=== PATIENT | female | born 1950 | race Caucasian/White ===

== ENCOUNTER → 2021-06-11 14:00 | Outpatient (BNVA) | payer BC, SELFPAY | PROVIDERS: PCP Family Medicine; Visit Provider Family Medicine | DX: I10 Essential (primary) hypertension (principal); E78.2 Mixed hyperlipidemia; E11.9 Type 2 diabetes mellitus without complications; R60.0 Localized edema; M54.2 Cervicalgia; G89.29 Other chronic pain | CPT/HCPCS: 80053; 80061; 82043; 83036; 85025 ==

== ENCOUNTER 2021-06-18 06:00 | Outpatient (RCR) | payer MEDICARE, BC, SELFPAY | END 2021-07-01 23:59 | disposition home or self-care (01) | LOC: SPT 06:00 | PROVIDERS: PCP Family Medicine; Visit Provider Family Medicine | DX: R26.81 Unsteadiness on feet (principal) | CPT/HCPCS: 97110; 97162 ==

== ENCOUNTER 2021-07-02 06:00 | Outpatient (RCR) | payer MEDICARE, BC, SELFPAY | END 2021-07-31 23:59 | disposition home or self-care (01) | LOC: SPT 06:00 | PROVIDERS: PCP Family Medicine; Visit Provider Family Medicine | DX: R26.81 Unsteadiness on feet (principal) | CPT/HCPCS: 97110 ==

== ENCOUNTER 2021-08-01 06:00 | Outpatient (RCR) | payer MEDICARE, BC, SELFPAY | END 2021-08-31 23:59 | disposition home or self-care (01) | LOC: SPT 06:00 | PROVIDERS: PCP Family Medicine; Visit Provider Family Medicine | DX: R26.81 Unsteadiness on feet (principal) | CPT/HCPCS: 97110 ==

== ENCOUNTER → 2021-08-13 15:23 | Outpatient (BNVA) | payer MEDICARE, BC, SELFPAY | PROVIDERS: PCP Family Medicine; Visit Provider Family Medicine | DX: I10 Essential (primary) hypertension (principal) | CPT/HCPCS: 80048 ==

== ENCOUNTER 2021-09-01 06:00 | Outpatient (RCR) | payer MEDICARE, BC, SELFPAY | END 2021-10-01 23:59 | disposition home or self-care (01) | LOC: SPT 06:00 | PROVIDERS: PCP Family Medicine; Visit Provider Family Medicine | DX: R26.81 Unsteadiness on feet (principal) | CPT/HCPCS: 97110 ==

== ENCOUNTER 2021-10-10 11:17 | Outpatient (CLI) | payer MEDICARE, BC, SELFPAY ==
--- NOTE | 2021-10-10 11:46 | MR_ITS ---
WS: [id number] MRI CERVICAL SPINE NONCONTRAST TECHNIQUE: Sagittal T1, T2 and STIR imaging. Axial T2, gradient, and fiesta imaging. CLINICAL INFORMATION: chronic neck pain COMPARISON: None. FINDINGS: Straightening of the normal cervical lordosis. Mild disc bulging with a small central protrusion C4-C 5. Slight retrolisthesis C4 on C5. Anterior hypertrophic changes C4-C6. Small vessel changes in the p ons. Chronic lacunar infarct in the liam. C2-C3: Normal. C3-C4: Tiny shallow central protrusion. Slight contact of the cervical cord. Mild facet arthropathy. Spinal canal and foramen are patent. C4-C5: Slight retrolisthesis. Disc osteophyte complex with endplate ridging. Mild to moderate central canal stenosis with contact of the cervical cord. Moderate bilateral bony foraminal narrowing. Mild facet arthropathy. C5-C6: Slight anterolisthesis C5 on C6. Disc osteophyte complex with endplate ridging. Mild RIGHT gre ater than LEFT foraminal narrowing. Mild facet arthropathy. Spinal canal is patent. C6-C7: Shallow central disc protrusion. Slight contact of the cervical cord. Spinal canal is patent. Mild LEFT and no significant RIGHT foraminal narrowing. C7-T1: No significant disc bulging. Spinal canal and foramen are patent. Tiny shallow central protrusions in the upper thoracic spine at T2-T3 and T3-T4. Visualized brain stem structures: Normal. Prevertebral soft tissues: Normal. MR/MR cervical spin wo con* [id number] IMPRESSION: 1. Straightening of the normal cervical lordosis. Cord signal is normal. 2. Mild to moderate central canal stenosis C4-C5 with shallow central disc ost eophyte complex with slight indentation on the cervical cord. 3. Tiny shallow central protrusion C3-C4 with slight contact of the cervical c ord. Spinal canal is patent. 4. Moderate bilateral foraminal narrowing C4-C5. 5. Mild RIGHT C5-C6 bony foraminal narrowing.
== END 2021-10-10 11:18 | disposition home or self-care (01) ==
LOC: RAD 11:39
PROVIDERS: PCP Family Medicine; Visit Provider Family Medicine
DX: M48.02 Spinal stenosis, cervical region (principal); G89.29 Other chronic pain; M50.21 Other cervical disc displacement, high cervical region
CPT/HCPCS: 72141

== ENCOUNTER → 2021-10-18 15:31 | Outpatient (BNVA) | payer MEDICARE, BC, SELFPAY | PROVIDERS: PCP Family Medicine; Visit Provider Orthopaedic Surgery | DX: M54.2 Cervicalgia (principal); G89.29 Other chronic pain | CPT/HCPCS: 72050 ==

== ENCOUNTER → 2021-11-08 13:42 | Outpatient (BNVA) | payer MEDICARE, BC, SELFPAY | PROVIDERS: PCP Family Medicine; Referring Provider Orthopaedic Surgery; Visit Provider Anesthesiology Pain Medicine | DX: G89.29 Other chronic pain (principal); M47.12 Other spondylosis with myelopathy, cervical region; M50.90 Cervical disc disorder, unspecified, unspecified cervical region; M54.12 Radiculopathy, cervical region; M79.601 Pain in right arm; M79.602 Pain in left arm | CPT/HCPCS: 99205 ==

== ENCOUNTER → 2021-11-12 14:54 | Outpatient (BNVA) | payer MEDICARE, BC, SELFPAY | PROVIDERS: PCP Family Medicine; Visit Provider Family Medicine | DX: I10 Essential (primary) hypertension (principal) | CPT/HCPCS: 80048 ==

== ENCOUNTER 2022-01-24 03:26 | Emergency (ER) | payer MEDICARE, BC, SELFPAY ==
[2022-01-24] VITALS (9 sets, daily range): BP systolic 158–188; BP diastolic 71–96; PULSE 68–87; RESP 18; TEMP 36.8; O2SAT 94–97; BMI 31.1
--- NOTE | 2022-01-24 03:35 | XRR_ITS ---
PROCEDURE INFORMATION: Exam: XR Chest Exam date and time: 01/24/2022 3:45 AM Age: 71 years old Clinical indication: Other: Syncope; Patient HX: Syncopal episode at home this a. M. Per EMS, patient unresponsive for approximately ten minutes. TECHNIQUE: Imaging protocol: XR of the chest. Views: 1 view. COMPARISON: CR XR cervical spine 4-5V [id number] 10/18/2021 3:38 PM FINDINGS: Lungs: The lung parenchyma is clear. Pleural spaces: No pneumothorax. No pleural effusion. Heart/Mediastinum: The heart is enlarged for size. Bones/joints: Unremarkable. XR/XR chest 1V portable [id number] IMPRESSION: 1. Cardiomegaly. 2. No significant airspace consolidation concerning for pneumonia.
--- NOTE | 2022-01-24 03:35 | CTR_ITS ---
PROCEDURE INFORMATION: Exam: CT Abdomen And Pelvis With Contrast Exam date and time: 01/24/2022 4:23 AM Age: 71 years old Clinical indication: Abdominal pain; Generalized; Prior surgery; Surgery type: Csection. Hemorrhoidectomy. Patient HX: C/O genral abd pain and weakness with nausea after having syncopal episode. History of stage iii kidney disease. TECHNIQUE: Imaging protocol: Computed tomography of the abdomen and pelvis with contrast. Radiation optimization: All CT scans at this facility use at least one of these dose optimization techniques: automated exposure control; mA and/or kV adjustment per patient size (includes targeted exams where dose is matched to clinical indication); or iterative reconstruction. Contrast material: VISI 320; Contrast volume: 50 ml; Contrast route: INTRAVENOUS (IV); COMPARISON: CR (CHEST, ) 01/24/2022 3:45 AM RADIATION DOSE METRICS: Total DLP (mGy-cm): 5.81 FINDINGS: Liver: There is a subcentimeter focus of decreased attenuation in the left hepatic lobe, which is too small to characterize. The liver is otherwise unremarkable. Gallbladder and bile ducts: Normal. No calcified stones. No ductal dilation. Pancreas: Normal. No ductal dilation. Spleen: Normal. No splenomegaly. Adrenal glands: Normal. No mass. Kidneys and ureters: Symmetric enhancement of the kidneys. There is incompletely characterized hypodense lesions in both kidneys, the largest measuring 3.8 cm in the right lower kidney. No hydronephrosis or nephrolithiasis. There is a 0.7 cm partially calcified aneurysm in the right renal hilum. Stomach and bowel: Unremarkable. No obstruction. No mucosal thickening. Appendix: No evidence of appendicitis. Intraperitoneal space: Unremarkable. No free air. No significant fluid collection. Vasculature: Mild diffuse atherosclerotic disease is present. Lymph nodes: Unremarkable. No enlarged lymph nodes. Urinary bladder: Unremarkable as visualized. Reproductive: Partially calcified uterine fibroid noted. Bones/joints: Degenerative changes of the spine seen. Soft tissues: Unremarkable. CT/CT abdomen pelvis w con* [id number] IMPRESSION: 1. No acute intra-abdominal or intrapelvic pathology. 2. Incompletely characterized bilateral kidney lesions. Further evaluation with contrast enhanced abdomen MRI in a non-emergent basis is recommended.
--- NOTE | 2022-01-24 03:35 | CTR_ITS ---
PROCEDURE INFORMATION: Exam: CT Head Without Contrast Exam date and time: 01/24/2022 4:18 AM Age: 71 years old Clinical indication: Syncope and collapse; Patient HX: Patient had syncopal episode while sitting on toilet at home this a. M. C/O general weakness. TECHNIQUE: Imaging protocol: Computed tomography of the head without contrast. Radiation optimization: All CT scans at this facility use at least one of these dose optimization techniques: automated exposure control; mA and/or kV adjustment per patient size (includes targeted exams where dose is matched to clinical indication); or iterative reconstruction. COMPARISON: MR cervical spin wo con* [id number] 10/10/2021 12:17 PM RADIATION DOSE METRICS: Total DLP (mGy-cm): 829.86 FINDINGS: Brain: No acute hemorrhage identified. No large territorial areas of hypoattenuation concerning for ischemic infarct identified. No intracranial mass effect. Subcortical and periventricular and subinsular white matter hypoattenuation likely consistent with moderate chronic microvascular ischemic disease. Small right subinsular infarct. Cerebral ventricles: The ventricles are mildly enlarged. Paranasal sinuses: The visualized sinuses are unremarkable. Mastoid air cells: The visualized mastoid air cells are well aerated. Bones/joints: The osseous structures are intact. Soft tissues: Unremarkable. CT/CT head wo con* [id number] IMPRESSION: 1. No acute intracranial abnormality. 2. Moderate chronic microvascular ischemic disease. 3. Small right subinsular infarct. 4. Mild ventriculomegaly.
--- NOTE | 2022-01-24 03:40 | ECG_ITS ---
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 Measurements Intervals [place] Rate: 68 P: 51 MT: 171 QRS: 59 QRSD: 82 T: 16 QT: 382 QTc: 407 Interpretive Statements SINUS RHYTHM NONSPECIFIC ST & T-WAVE ABNORMALITY Compared to ECG 01/24/2022 03:33:22 No significant changes Electronically Signed On 01-24-2022 22:25:24 CDT by Mendoza Ortiz M.D. [email or web address] [place].[email or web address]/store/[id number]
--- NOTE | 2022-01-24 03:43 | ED_ITS ---
HPI - Syncope General: Chief Complaint: Syncope Stated Complaint: syncope Time Seen by Provider: 01/24/22 03:32 Source: EMS Mode of arrival: EMS Limitations: no limitations History of Present Illness: 71-year-old female states that she went to the bathroom and had a syncopal event just prior to arrival. Her states that he had one in there with her she sat down and immediately became pale diap horetic and passed out for roughly a minute. He states that she had vomited and he was able to get her to wake up. She states that since she had woken up she just does not feel very well she is having some abdominal pain and feels weak. She denies any chest pain or headache. Denies any chest pain or headache before the event. Associated symptoms: Reports abdominal pain; Deny fever(s) or headache(s) Review of Systems Const: Denies: fever(s), chills, body aches or change in appetite Eyes: Denies: blurry vision or eye discomfort ENMT: Denies: throat pain or dental pain Card: Reports: syncope Resp: Denies: dyspnea GI: Reports: abdominal pain and vomiting : Denies: dysuria Musc: Denies: neck pain or back pain Skin/Breast: Denies: rash Neuro: Denies: headache(s) Psych: Denies: depression Julien/Lymph: Denies: easy bruising All/Imm: Denies: urticaria PFSH ED PFSH: Medical History Diabetes mellitus without complication, without long-term current use of insulin Essential hypertension Hyperlipemia [place] (obstructive sleep apnea) Stage 3a chronic kidney disease (CKD) Surgical History H/O section x 2 H/O hemorrhoidectomy H/O total knee replacement left Hx of LASIK Family History Father Cancer Grandmother Stroke Social History Smoking and tobacco status: never smoked Second hand smoke exposure: No Alcohol intake: never Desire information about alcohol rehabilitation?: No Desire information about substance/drug rehabilitation?: No Physical Exam Const: COMMON NORMALS: no acute distress, patient oriented x3 and healthy appearing HENMT: COMMON NORMALS: normocephalic and atraumatic HEAD & SCALP: normocephalic and atraumatic Eye: COMMON NORMALS: Equal, round and reactive pupils present and EOMs intact bilaterally PUPIL: Yes Equal, round and reactive pupils present Neck/C-Spine: COMMON NORMALS: full ROM and supple Chest: COMMONS NORMALS: normal inspection of the chest and normal palpation of entire chest wall Resp: COMMON NORMALS: normal respiratory effort, No retractions, No use of accessory muscles and clear to auscultation bilaterally AUSCULTATION: clear to auscultation bilaterally Cardio: COMMON NORMALS: regular rate, regular rhythm and No murmurs present (Cardio) RATE: regular rate RHYTHM: regular rhythm GI: COMMON NORMALS: Normal to inspection, nondistended, normoactive bowel sounds present, Soft to palpation and no masses PALPATION: Yes Soft to palpation OTHER: diffuse tenderness Extremity: COMMON NORMALS: normal to inspection and full ROM Neuro: COMMON NORMALS: patient oriented x3, moves all extremities and no focal motor deficits Psych: COMMON NORMALS: mental status grossly normal, Normal thought process present and cooperative THOUGHT PROCESS: Normal thought process present Skin: COMMON NORMALS: no rashes or lesions noted and no wounds GENERAL SKIN EXAM: no rashes or lesions noted Course Vital Signs: Vital signs: Vital Signs Temperature 98.2 F 01/24/22 03:27 Pulse Rate 81 01/24/22 06:03 Respiratory Rate 18 01/24/22 06:03 Blood Pressure 160/73 01/24/22 06:03 Pulse Oximetry 97 01/24/22 06:03 MDM - Syncope Medical Decision Making Patient presents here with a syncopal event. I strongly recommended admission due to the syncopal event she states she feels much improved and is not going to stay in the hospital her CT had CT of abdomen and blood work are all normal. She was able to ambulate the halls here with her walker and her orthostatics were normal informed her if she feels worse she needs to return she is to follow-up with PCP in 2 to 3 days. Lab Data : 01/24/22 03:10 01/24/22 03:10 Radiology Impressions Abdomen/Pelvis CT 01/24/22 03:35 IMPRESSION: 1. No acute intra-abdominal or intrapelvic pathology. 2. Incompletely characterized bilateral kidney lesions. Further evaluation with contrast enhanced abdomen MRI in a non-emergent basis is recommended. Chest X-Ray 01/24/22 03:35 IMPRESSION: 1. Cardiomegaly. 2. No significant airspace consolidation concerning for pneumonia. Head CT 01/24/22 03:35 IMPRESSION: 1. No acute intracranial abnormality. 2. Moderate chronic microvascular ischemic disease. 3. Small right subinsular infarct. 4. Mild ventriculomegaly. Laboratory Results WBC 8.9 10^3/uL (4.0-10.0) 01/24/22 03:10 RBC 3.25 10^6/uL (4.1-5.3) L 01/24/22 03:10 Hgb 9.7 g/dL (11.5-15.3) L 01/24/22 03:10 Hct 29.3 % (37.0-47.0) L 01/24/22 03:10 MCV 90.2 fl (81-99) 01/24/22 03:10 MCH 29.8 pg (28.0-34.0) 01/24/22 03:10 MCHC 33.1 g/dL (30.0-36.0) 01/24/22 03:10 RDW 13.3 % (12.1-15.1) 01/24/22 03:10 Plt Count 288 10^3/cmm (130-400) 01/24/22 03:10 MPV 9.4 fL (7.4-10.4) 01/24/22 03:10 Neut % (Auto) 66.5 % 01/24/22 03:10 Lymph % (Auto) 24.1 % 01/24/22 03:10 [place] % (Auto) 6.4 % 01/24/22 03:10 Eos % (Auto) 2.0 % 01/24/22 03:10 Baso % (Auto) 0.5 % 01/24/22 03:10 Neut # (Auto) 5.91 10^3/uL (1.8-7.7) 01/24/22 03:10 Lymph # (Auto) 2.1 10^3/uL (0.8-4.8) 01/24/22 03:10 [place] # (Auto) 0.6 10^3/uL (0.2-0.9) 01/24/22 03:10 Eos # (Auto) 0.2 10^3/uL (0.0-0.8) 01/24/22 03:10 Baso # (Auto) 0.0 10^3/uL (0.0-0.1) 01/24/22 03:10 Nucleated RBC % (auto) 0 % 01/24/22 03:10 Nucleated RBCs # 0.0 /100WBC 01/24/22 03:10 Sodium 140 mmol/L (136-145) 01/24/22 03:10 Potassium 4.3 mmol/L (3.5-5.1) 01/24/22 03:10 Chloride 101 mmol/L (98-107) 01/24/22 03:10 Carbon Dioxide 27 mmol/L (22-29) 01/24/22 03:10 Anion Gap 16.3 (5-19) 01/24/22 03:10 BUN 42 mg/dL (8-23) H 01/24/22 03:10 Creatinine 1.6 mg/dL (0.5-0.9) H 01/24/22 03:10 GFR Calculation Not Reportable 01/24/22 03:10 Glucose 191 mg/dL (65-115) H 01/24/22 03:10 Calculated Osmolality 306 mOsm/kg (285-295) H 01/24/22 03:10 Calcium 9.8 mg/dL (8.5-10.5) 01/24/22 03:10 Total Bilirubin 0.3 mg/dL (0.15-1.2) 01/24/22 03:10 AST 16 U/L (0-32) 01/24/22 03:10 ALT 19 U/L (0-33) 01/24/22 03:10 Alkaline Phosphatase 76 IU/L (35-105) 01/24/22 03:10 Troponin T Baseline 14 ng/L (0-10) H 01/24/22 03:10 Troponin T 120 Minute 14.31 ng/L (0-10) H 01/24/22 05:20 Delta Troponin T 0.31 ABS# (0-10) 01/24/22 05:20 Total Protein 7.1 g/dL (6.6-8.7) 01/24/22 03:10 Albumin 4.3 g/dL (3.5-5.2) 01/24/22 03:10 Globulin 2.8 g/dL (1.3-4.6) 01/24/22 03:10 Lipase 87 U/L (13-60) H 01/24/22 03:10 EKG Data EKG 1: I personally reviewed and interpreted this EKG as follows: EKG interpretation date: 01/24/22 EKG interpretation time: 03:33 Interpretation: nsr hr [address] or t wave abnormalities qrs 79 qtc 405 EKG 2: I personally reviewed and interpreted this EKG as follows: EKG interpretation date: 01/24/22 EKG interpretation time: 04:04 Interpretation: nsr hr [address] or t wave abnormalitie qrs 82 qtc 399 Discharge Plan Discharge Patient Disposition: Home Clinical Impression: Syncope Qualifiers: Syncope type: unspecified Qualified Code(s): R55 - Syncope and collapse Condition: Stable Prescriptions: No Action albuterol sulfate 90 mcg/actuation HFA aerosol inhaler 1 inh inhalation QID 0RF acetaminophen [Tylenol Extra Strength] 500 mg tablet 500 mg PO ONCE PRN0RF atorvastatin 80 mg tablet 80 mg PO DAILY 90 Days Qty: 90 0RF chlorthalidone 25 mg tablet 25 mg PO DAILY Qty: 90 0RF losartan 100 mg tablet 100 mg PO DAILY Qty: 90 0RF metformin 500 mg tablet extended release 24 hr 500 mg PO DAILY 90 Days Qty: 90 0RF metoprolol succinate 100 mg tablet extended release 24 hr 100 mg PO DAILY Qty: 90 0RF amlodipine 5 mg tablet 5 mg PO DAILY Qty: 90 0RF Discharge Orders: Discharge ED (Routine); Ordered 01/24/22 Ordered By: Alva Manriquez Referrals: Chrissy Zuniga DO [Primary Care Provider] - 1-3 days Discharge Diet: Advance as tolerated Discharge Activity: Resume usual activity Patient Instructions: Syncope (ED) Coding Level of Care Code ED Specialized Language Instructor for Chg Fwd Exam Comprehensive
[2022-01-24 03:50] LABS: Basophils % 0.5 %; Eosinophils # 0.2 10^3/uL (0.0-0.8); Hematocrit 29.3 % (37.0-47.0); Hemoglobin 9.7 g/dL (11.5-15.3); Lymphocytes # 2.1 10^3/uL (0.8-4.8); Lymphocytes % 24.1 %; Mean Corpuscular HGB Conc 33.1 g/dL (30.0-36.0); Mean Corpuscular Hemoglobin 29.8 pg (28.0-34.0); Mean Corpuscular Volume 90.2 fl (81-99); Mean Platelet Volume 9.4 fL (7.4-10.4); Monocytes # 0.6 10^3/uL (0.2-0.9); Monocytes % 6.4 %; Neutrophils # 5.91 10^3/uL (1.8-7.7); Neutrophils % 66.5 %; Nucleated Red Blood Cells % 0 %; Platelet Count 288 10^3/cmm (130-400); Red Blood Count 3.25 10^6/uL (4.1-5.3); Red Cell Distribution Width 13.3 % (12.1-15.1); White Blood Count 8.9 10^3/uL (4.0-10.0)
[2022-01-24 04:02] LABS: Alanine Aminotransferase 19 U/L (0-33); Albumin Level 4.3 g/dL (3.5-5.2); Alkaline Phosphatase 76 IU/L (35-105); Anion Gap 16.3 (5-19); Aspartate Amino Transferase 16 U/L (0-32); Blood Urea Nitrogen 42 mg/dL (8-23); Calcium 9.8 mg/dL (8.5-10.5); Carbon Dioxide 27 mmol/L (22-29); Chloride 101 mmol/L (98-107); Globulin 2.8 g/dL (1.3-4.6); Glucose 191 mg/dL (65-115); Lipase 87 U/L (13-60); Osmolality Calculated 306 mOsm/kg (285-295); Potassium 4.3 mmol/L (3.5-5.1); Sodium 140 mmol/L (136-145); Total Bilirubin 0.3 mg/dL (0.15-1.2); Total Protein 7.1 g/dL (6.6-8.7)
[2022-01-24 04:07] LABS: Troponin(5th) Baseline 14 ng/L (0-10)
[2022-01-24] MEDS: iodixanol 320 mg/mL 100mL Btl IV (04:23)
[2022-01-24] MEDS: sodium chloride 0.9% 1,000 ML 999 ML IV (04:40)
[2022-01-24 05:51] LABS: Troponin 5 2HR 14.31 ng/L (0-10)
[2022-01-24 05:53] LABS: Troponin 5 2HR Delta 0.31 ABS# (0-10)
--- NOTE | 2022-01-24 09:40 | ECG_ITS ---
[facility] Test Date: 2022-01-24 Pat Name: Katharine Pelletier Department: Room: Gender: Female Qa Tester: : 1950 Requested By: Alva Manriquez Order Number: [id number] Lucien MD: Mendoza Ortiz M.D. Measurements Intervals [place] Rate: 69 P: 52 MS: 170 QRS: 61 QRSD: 79 T: 30 QT: 387 QTc: 415 Interpretive Statements SINUS RHYTHM NONSPECIFIC ST & T-WAVE ABNORMALITY No previous ECG available for comparison Electronically Signed On 01-24-2022 22:28:04 CDT by Mendoza Ortiz M.D. [email or web address] [id number]
== END 2022-01-24 06:00 | disposition home or self-care (01) ==
PROVIDERS: Emergency Provider Emergency Medicine; PCP Family Medicine
DX: R55 Syncope and collapse (principal); I12.9 Hypertensive chronic kidney disease with stage 1 through stage 4 chronic kidney disease, or unspecified chronic kidney disease; E11.22 Type 2 diabetes mellitus with diabetic chronic kidney disease; N18.31 Chronic kidney disease, stage 3a
CPT/HCPCS: 70450; 71045; 74177; 80053; 83690; 84484; 85025; 93005; 96360; 99285; J7030; Q9967

== ENCOUNTER → 2022-02-11 15:22 | Outpatient (BNVA) | payer MEDICARE, BC, SELFPAY | PROVIDERS: PCP Family Medicine; Visit Provider Family Medicine | DX: N18.31 Chronic kidney disease, stage 3a (principal); R30.0 Dysuria | CPT/HCPCS: 80048; 87077; 87086; 87184 ==

== ENCOUNTER → 2022-02-28 13:01 | Outpatient (BNVA) | payer MEDICARE, BC, SELFPAY | PROVIDERS: PCP Family Medicine; Visit Provider Surgery | DX: D50.9 Iron deficiency anemia, unspecified (principal) | CPT/HCPCS: 99203 ==

== ENCOUNTER → 2022-05-09 18:04 | Outpatient (BNVA) | payer MEDICARE, BC, SELFPAY | PROVIDERS: PCP Family Medicine; Visit Provider Emergency Medicine | DX: N30.01 Acute cystitis with hematuria (principal); R82.90 Unspecified abnormal findings in urine | CPT/HCPCS: 81000 ==

== ENCOUNTER → 2022-08-19 13:26 | Outpatient (BNVA) | payer MEDICARE, BC, SELFPAY | PROVIDERS: PCP Family Medicine; Visit Provider Family Medicine | DX: D50.8 Other iron deficiency anemias (principal); D50.9 Iron deficiency anemia, unspecified; I10 Essential (primary) hypertension; R60.0 Localized edema; R53.83 Other fatigue; E11.9 Type 2 diabetes mellitus without complications; E78.2 Mixed hyperlipidemia | CPT/HCPCS: 80053; 80061; 82728; 83036; 83550; 84443; 85025 ==

== ENCOUNTER → 2022-09-05 10:20 | Outpatient (BNVA) | payer MEDICARE, BC, SELFPAY | PROVIDERS: PCP Family Medicine; Visit Provider Obstetrics & Gynecology | DX: N95.0 Postmenopausal bleeding (principal) | CPT/HCPCS: 88305; 88342 ==

== ENCOUNTER 2022-09-18 15:54 | Outpatient (CLI) | payer MEDICARE, BC, SELFPAY ==
[2022-09-18 16:43] LABS: Basophils % 0.4 %; Eosinophils # 0.2 10^3/uL (0.0-0.8); Eosinophils % 2.8 %; Hematocrit 29.3 % (37.0-47.0); Hemoglobin 9.4 g/dL (11.5-15.3); Lymphocytes # 1.7 10^3/uL (0.8-4.8); Lymphocytes % 21.4 %; Mean Corpuscular HGB Conc 32.1 g/dL (30.0-36.0); Mean Corpuscular Hemoglobin 29.1 pg (28.0-34.0); Mean Corpuscular Volume 90.7 fl (81-99); Mean Platelet Volume 9.4 fL (7.4-10.4); Monocytes # 0.4 10^3/uL (0.2-0.9); Monocytes % 5.1 %; Neutrophils # 5.46 10^3/uL (1.8-7.7); Nucleated Red Blood Cells % 0 %; Platelet Count 239 10^3/cmm (130-400); Red Blood Count 3.23 10^6/uL (4.1-5.3); Red Cell Distribution Width 13.3 % (12.1-15.1); White Blood Count 7.8 10^3/uL (4.0-10.0)
== END 2022-09-18 15:55 | disposition home or self-care (01) ==
LOC: LAB 15:58
PROVIDERS: PCP Family Medicine; Visit Provider Obstetrics & Gynecology
DX: R58 Hemorrhage, not elsewhere classified (principal)
CPT/HCPCS: 36415; 85025

== ENCOUNTER → 2022-10-04 09:02 | Outpatient (BNVA) | payer MEDICARE, BC, SELFPAY | PROVIDERS: PCP Family Medicine; Visit Provider Obstetrics & Gynecology | DX: N95.0 Postmenopausal bleeding (principal); R19.09 Other intra-abdominal and pelvic swelling, mass and lump | CPT/HCPCS: 76830 ==

== ENCOUNTER 2022-10-10 07:35 | Day surgery (SDC) | payer MEDICARE, BC, SELFPAY ==
[2022-10-10] VITALS (11 sets, daily range): BP systolic 149–165; BP diastolic 62–82; PULSE 63–70; RESP 11–20; TEMP 36.1–36.6; O2SAT 94–100
--- NOTE | 2022-10-10 08:14 | ANES.PREANE2 ---
Pre-Anesthetic Assessment Height/Weight: Height 1.57 m Weight 81.647 kg Temp Pulse Resp BP Pulse Ox O2 Del Method 97.9 F 68 18 165/74 99 10/10/22 07:58 10/10/22 07:58 10/10/22 07:58 10/10/22 07:58 10/10/22 07:58 10/10/22 07:58 Preop Diagnosis: PMB Operation Date: 10/10/22 09:00 Proposed Procedures p Hysteroscopy, dilation and curettage with Myosure 57239, 22020,58714,N95.0(Not Applicable) - Leslie Duncan MD s Dilation And Curettage (D&C)(Not Applicable) - Leslie Duncan MD Familial anesthetic complications: None Was Beta [place] taken within 24 hours: N/A Was Clonidine taken within 24 hours: N/A Last intake: Intake Last Liquid Date 10/09/22 Last Liquid Time 23:00 Last Solid Date 10/09/22 Last Solid Time 21:00 Social No alcohol and No tobacco Exam alert, oriented x 3, clear to auscultation bilaterally and regular rate & rhythm Airway Mallampati: Class III Dentition: other (implant) Pulmonary Sleep Apnea CV/HEM Hypertension Chronic Renal Insufficiency Metabolic Diabetes Mellitus, Hyperlipidemia and Morbid Obesity Neuropsych Cerebrovascular Accident (balance deficit plus ? additiona deficits (patient apppears to be demonstrating slow perplexed thinking)) Anesthetic Plan ASA status: 3 Risk of > 500 ml blood loss (7ml/kg in children): No Medications/Allergies Home Medications Medication Instructions Recorded Confirmed Last Taken Type acetaminophen 500 mg tablet 500 mg PO PRN PRN Pain 11/08/21 10/10/22 10/09/22 History (Tylenol Extra Strength) metoprolol succinate 100 mg 100 mg PO DAILY #90 tabs 07/29/22 10/10/22 10/09/22 Rx tablet,extended release 24 hr atorvastatin 80 mg tablet 80 mg PO DAILY 90 days #90 tabs 08/02/22 10/10/22 10/09/22 Rx amlodipine 5 mg tablet 5 mg PO DAILY #90 tabs 08/19/22 10/10/22 10/09/22 Rx chlorthalidone 25 mg tablet 25 mg PO DAILY #90 tabs 08/19/22 10/10/22 10/09/22 Rx losartan 100 mg tablet 100 mg PO DAILY #90 tabs 08/19/22 10/10/22 10/09/22 Rx sitagliptin phosphate 25 mg tablet 25 mg PO DAILY #90 tabs 08/21/22 10/10/22 10/09/22 Rx (Januvia) Allergies Allergy/AdvReac Type Severity Reaction Status Date / Time latex Allergy ALGY-Hives Verified 10/10/22 07:53 meperidine [From Demerol] Allergy ADR-Halluci Verified 10/10/22 07:53 cody [facility] Anesthesia Medical History Diabetes mellitus without complication, without long-term current use of insulin Essential hypertension Hyperlipemia [place] (obstructive sleep apnea) Stage 3a chronic kidney disease (CKD) Surgical History H/O section x 2 H/O hemorrhoidectomy H/O total knee replacement left Hx of LASIK Family History Grandmother Stroke Denies family history of Colon cancer Ovarian cancer Diabetes Heart disease Hypercholesteremia Breast cancer Hypertension Uterine cancer Thyroid disease Data Anesthesia Cardiac Studies: No Data to Display
[2022-10-10] MEDS: sodium chloride 0.9% 1,000 ML 30 ML IV (08:19)
[2022-10-10 08:23] LABS: Glucose Point of Care 127 mg/dL (70-110)
--- NOTE | 2022-10-10 08:23 | W.PM.OPSUD ---
Surgery/Procedure H&P Update DATE OF PROCEDURE: October 10, 2022 DATE H&P PERFORMED: 10/09/22 H&P UPDATE INFORMATION: I have reviewed H&P completed within last 30 days, I have examined patient prior to procedure and No changes to prior documentation PREOP DIAGNOSIS: PMB PLANNED PROCEDURE: Operation Date: 10/10/22 09:00 Proposed Procedures p Hysteroscopy, dilation and curettage with Myosure 78315, 11076,10065,N95.0(Not Applicable) - Leslie Duncan MD s Dilation And Curettage (D&C)(Not Applicable) - Leslie Duncan MD Related Problem List Diagnoses (1) Post-menopausal bleeding:
--- NOTE | 2022-10-10 08:35 | ECG_ITS ---
[facility] Test Date: 2022-10-10 Pat Name: Katharine Pelletier Department: Room: Gender: Female Supervisor Winter: : 1950 Requested By: Jackelyn North Order Number: [id number] Lucien MD: Eileen Castanon M.D. Measurements Intervals [place] Rate: 65 P: 84 NC: 184 QRS: 65 QRSD: 83 T: 30 QT: 395 QTc: 413 Interpretive Statements SINUS RHYTHM NONSPECIFIC T-WAVE ABNORMALITY Compared to ECG 01/24/2022 04:04:42 No significant changes Electronically Signed On 10-11-2022 8:15:45 WORKDAY CONSULTANT by Eileen Castanon M.D. [email or web address] [facility] regional medical centerDealsAndYouavita health system galion hospitalGreenwood Hall/store/OM/[id number]
[2022-10-10 08:41] LABS: Basophils # 0.1 10^3/uL (0.0-0.1); Basophils % 0.7 %; Eosinophils # 0.2 10^3/uL (0.0-0.8); Eosinophils % 3.1 %; Hematocrit 25.2 % (37.0-47.0); Hemoglobin 8.2 g/dL (11.5-15.3); Lymphocytes % 29.3 %; Mean Corpuscular HGB Conc 32.5 g/dL (30.0-36.0); Mean Corpuscular Hemoglobin 29.5 pg (28.0-34.0); Mean Corpuscular Volume 90.6 fl (81-99); Mean Platelet Volume 9.4 fL (7.4-10.4); Monocytes # 0.5 10^3/uL (0.2-0.9); Monocytes % 7.5 %; Neutrophils % 59.3 %; Nucleated Red Blood Cells % 0 %; Platelet Count 230 10^3/cmm (130-400); Red Blood Count 2.78 10^6/uL (4.1-5.3); Red Cell Distribution Width 13.5 % (12.1-15.1); White Blood Count 6.8 10^3/uL (4.0-10.0)
[2022-10-10] MEDS: ceFAZolin 2,000 MG in sodium chloride 0.9% (plus) 50 ML 100 MG IV (08:47)
[2022-10-10 08:58] LABS: Anion Gap 17.5 (5-19); Blood Urea Nitrogen 37 mg/dL (8-23); Calcium 9.3 mg/dL (8.5-10.5); Carbon Dioxide 23 mmol/L (22-29); Chloride 103 mmol/L (98-107); Glucose 121 mg/dL (65-115); Osmolality Calculated 298 mOsm/kg (285-295); Potassium 4.5 mmol/L (3.5-5.1); Sodium 139 mmol/L (136-145)
--- NOTE | 2022-10-10 09:33 | P.OP_ITS ---
Operative Report Date of procedure: October 10, 2022 Pre-op diagnosis: Preop Diagnosis PMB Post-op diagnosis: same Post-op diagnosis: uterine mass Post-op findings: 9 week sized uterus with a right uterine mass Procedure done: hysteroscopy, D&C, myosure Specimens removed/disposition: endometrial curettings to pathology Surgeon: Leslie Duncan Anesthesia: General Estimated blood loss (mL): 10 IV fluids (mL): 500 Complications: none Findings: hysteroscopy deficit 100 ml Procedure: The patient was taken to the operating room where monitored anesthesia was administered and to be adequate. She was prepped and draped in the normal sterile fashion in the dorsal lithotomy position in [facility]. A weighted speculum was placed into the vagina and the anterior lip of the cervix grasped with a single-tooth tenaculum. The uterus was sounded to 9 cm. The cervix was dilated to 16 [place]. The hysteroscope was advanced into the endometrial cavity. There was a right uterine mass visualized. The MyoSure device was activated and the tissue was removed. Pictures were taken pre and post procedure. All instruments were removed. The patient tolerated the procedure well. Sponge lap and needle counts were correct x3. She was taken to the recovery room in stable condition.
--- NOTE | 2022-10-10 09:38 | P.DS_ITS ---
Discharge Providers Date of Admission: 10/10/22 Date of Discharge: October 10, 2022 Attending Provider at Discharge: Leslie Duncan MD Primary Care Provider: Chrissy Zuniga DO Diagnoses at Discharge Discharge Diagnosis (1) Post-menopausal bleeding: Status: Acute Reason for Visit Reason for Visit: N95.0 Hospital Course Hospital Course The patient was admitted for surgery. She did well postoperatively and was ready for discharge. Discharge Data Studies Completed and Pending Pending at discharge Category Date Time Status Pathology: Surgical [PTH] Routine Pth 10/10/22 09:26 Ordered Laboratory Results WBC 6.8 10^3/uL (4.0-10.0) 10/10/22 08:18 RBC 2.78 10^6/uL (4.1-5.3) L 10/10/22 08:18 Hgb 8.2 g/dL (11.5-15.3) L 10/10/22 08:18 Hct 25.2 % (37.0-47.0) L 10/10/22 08:18 MCV 90.6 fl (81-99) 10/10/22 08:18 MCH 29.5 pg (28.0-34.0) 10/10/22 08:18 MCHC 32.5 g/dL (30.0-36.0) 10/10/22 08:18 RDW 13.5 % (12.1-15.1) 10/10/22 08:18 Plt Count 230 10^3/cmm (130-400) 10/10/22 08:18 MPV 9.4 fL (7.4-10.4) 10/10/22 08:18 Neut % (Auto) 59.3 % 10/10/22 08:18 Lymph % (Auto) 29.3 % 10/10/22 08:18 Lasalle % (Auto) 7.5 % 10/10/22 08:18 Eos % (Auto) 3.1 % 10/10/22 08:18 Baso % (Auto) 0.7 % 10/10/22 08:18 Neut # (Auto) 4.00 10^3/uL (1.8-7.7) 10/10/22 08:18 Lymph # (Auto) 2.0 10^3/uL (0.8-4.8) 10/10/22 08:18 Lasalle # (Auto) 0.5 10^3/uL (0.2-0.9) 10/10/22 08:18 Eos # (Auto) 0.2 10^3/uL (0.0-0.8) 10/10/22 08:18 Baso # (Auto) 0.1 10^3/uL (0.0-0.1) 10/10/22 08:18 Nucleated RBC % (auto) 0 % 10/10/22 08:18 Nucleated RBCs # 0.0 /100WBC 10/10/22 08:18 Sodium 139 mmol/L (136-145) 10/10/22 08:18 Potassium 4.5 mmol/L (3.5-5.1) 10/10/22 08:18 Chloride 103 mmol/L (98-107) 10/10/22 08:18 Carbon Dioxide 23 mmol/L (22-29) 10/10/22 08:18 Anion Gap 17.5 (5-19) 10/10/22 08:18 BUN 37 mg/dL (8-23) H 10/10/22 08:18 Creatinine 1.8 mg/dL (0.5-0.9) H 10/10/22 08:18 GFR Calculation Not Reportable 10/10/22 08:18 Glucose 121 mg/dL (65-115) H 10/10/22 08:18 POC Glucose 127 mg/dL (70-110) H 10/10/22 08:08 Calculated Osmolality 298 mOsm/kg (285-295) H 10/10/22 08:18 Calcium 9.3 mg/dL (8.5-10.5) 10/10/22 08:18 Vitals Last Vital Signs Temp 97.9 F 10/10/22 07:58 Pulse 68 10/10/22 07:58 Resp 18 10/10/22 07:58 BP 165/74 10/10/22 07:58 Pulse Ox 99 10/10/22 07:58 O2 Del Method 10/10/22 07:58 Discharge Plan Discharge Patient Disposition: Home Condition: Stable Prescriptions: Continued acetaminophen [Tylenol Extra Strength] 500 mg tablet 500 mg PO PRN PRN (Reason: Pain) amlodipine 5 mg tablet 5 mg PO DAILY Qty: 90 1RF chlorthalidone 25 mg tablet 25 mg PO DAILY Qty: 90 1RF losartan 100 mg tablet 100 mg PO DAILY Qty: 90 1RF metoprolol succinate 100 mg tablet extended release 24 hr 100 mg PO DAILY Qty: 90 0RF atorvastatin 80 mg tablet 80 mg PO DAILY 90 Days Qty: 90 0RF Januvia 25 mg tablet 25 mg PO DAILY Qty: 90 0RF Discharge Orders: Discharge Order (Routine); Ordered 10/10/22 Ordered By: Leslie Duncan Patient Instructions: Dilation and Curettage (DC), Dilation and Curettage (GEN), Hysteroscopy (DC), Hysteroscopy (GEN), Post Anesthesia Care Discharge Attestations Time Spent in Discharge Care*: less than 30 min Quality Metrics Clinical Quality Measures [ No reported AMI, CVA or VTE this stay] Coding Level of Care Code Acute Code for Chg Fwd Diagnoses Post-menopausal bleeding N95.0
--- NOTE | 2022-10-10 09:45 | PC.NURSE ---
Oral airway removed on arrival. Patient is awake and alert
--- NOTE | 2022-10-10 09:50 | PC.NURSE ---
OB pad saturated. Changed with behzad care given
--- NOTE | 2022-10-10 17:17 | ANE.PACU2 ---
Inpatient post-anesthesia follow up: Airway intact: Yes Vital signs: Temperature 97.0 F Pulse Rate 65 Respiratory Rate 18 Blood Pressure 153/72 Pulse Oximetry 94 Oxygen Delivery Me thod Room Air Oxygen Flow Rate Fraction of Inspir ed Oxygen Hydration adequate: Yes Nausea and vomiting: Yes Pain level: 1 Mental status: Baseline
== END 2022-10-10 10:44 | disposition home or self-care (01) ==
PROVIDERS: PCP Family Medicine; Visit Provider Obstetrics & Gynecology
PROC: 0UDB8ZZ Extraction of Endometrium, Via Natural or Artificial Opening Endoscopic (ICD-10-PCS; CPT 58558; principal; 2022-10-10 09:00)
PROC: (CPT 58120; 2022-10-10 09:00)
DX: N95.0 Postmenopausal bleeding (principal); E11.22 Type 2 diabetes mellitus with diabetic chronic kidney disease; I12.9 Hypertensive chronic kidney disease with stage 1 through stage 4 chronic kidney disease, or unspecified chronic kidney disease; N18.30 Chronic kidney disease, stage 3 unspecified; E78.5 Hyperlipidemia, unspecified; E66.01 Morbid (severe) obesity due to excess calories; Z68.32 Body mass index [BMI] 32.0-32.9, adult; Z86.73 Personal history of transient ischemic attack (TIA), and cerebral infarction without residual deficits; G47.33 Obstructive sleep apnea (adult) (pediatric)
CPT/HCPCS: 58558; 36415; 36416; 80048; 82962; 85025; 88305; 93005; J0690; J1100; J2405; J2704; J3010; J7030

== ENCOUNTER → 2022-11-18 14:44 | Outpatient (BNVA) | payer MEDICARE, SELFPAY | PROVIDERS: PCP Family Medicine; Visit Provider Family Medicine | DX: R30.0 Dysuria (principal); N18.31 Chronic kidney disease, stage 3a; D50.9 Iron deficiency anemia, unspecified; D50.8 Other iron deficiency anemias; E11.9 Type 2 diabetes mellitus without complications | CPT/HCPCS: 80048; 81000; 82728; 83036; 83550; 85025; 87077; 87086; 87184 ==

== ENCOUNTER → 2022-12-17 13:07 | Outpatient (BNVA) | payer MEDICARE, SELFPAY | PROVIDERS: PCP Family Medicine; Visit Provider Surgery | DX: Z12.11 Encounter for screening for malignant neoplasm of colon (principal); D50.8 Other iron deficiency anemias | CPT/HCPCS: 99024; 99213 ==

== ENCOUNTER → 2023-02-17 13:44 | Outpatient (BNVA) | payer MEDICARE, SELFPAY | PROVIDERS: PCP Family Medicine; Visit Provider Family Medicine | DX: R07.89 Other chest pain (principal); R30.0 Dysuria; Z79.899 Other long term (current) drug therapy | CPT/HCPCS: 81000; 87077; 87086; 87184 ==

== ENCOUNTER 2023-03-10 14:45 | Outpatient (CLI) | payer MEDICARE, BC, SELFPAY ==
--- NOTE | 2023-03-10 15:04 | US_ITS ---
WS: [id number] RENAL ULTRASOUND URINARY BLADDER ULTRASOUND HISTORY: CHRONIC KIDNEY DZ-STAGE 3B COMPARISON: CT 01/24/2022 TECHNIQUE: 2-D and color Doppler imaging of the kidney submitted. Right kidney: 9.6 cm x 5.8 cm x 4.7 cm. Normal size kidney. No hydronephrosis. There are several renal cysts. The largest from the mid kidney measures 4.0 x 3.8 x 3.4 cm. No solid mass identified. Left kidney: 10.1 cm x 5.7 cm x 4.9 cm. Normal echogenicity with no hydronephrosis or mass. Aorta: Normal. Urinary Bladder: Bladder is minimally distended. There is no post void residual. Complete emptying of the urinary bladder. Prevoid volume of 90 mL. US/US renal BI with PV bladder IMPRESSION: 1. No renal atrophy or hydronephrosis. 2. Several simple RIGHT renal cysts. 3. No post void residual.
== END 2023-03-10 14:46 | disposition home or self-care (01) ==
PROVIDERS: PCP Family Medicine; Visit Provider Nurse Practitioner Gerontology
DX: N18.32 Chronic kidney disease, stage 3b (principal); N28.1 Cyst of kidney, acquired
CPT/HCPCS: 76770; 76857

== ENCOUNTER 2023-04-21 09:34 | Outpatient (CLI) | payer MEDICARE, BC, SELFPAY ==
--- NOTE | 2023-04-21 | ECG_ITS ---
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 Interpretive Statements NAME OF STUDY: LEXISCAN SESTAMIBI STRESS TEST INDICATION: Atypical Chest Pain PROCEDURE: At the baseline, the blood pressure was 137/79 mmHg with a heart rate of 64 bpm oxygen saturation 92%. The electrocardiogram showed sinus rhythm, normal axis with nonspecific ST depression T wave inversion in lead II, aVF, V4 to V6. The Lexiscan was infused over a period of 20 seconds. A total of 0.4 milligrams of Lexiscan was infused. The stress phase was continued for a total of 5 minutes. Heart rate at the end of the stress phase was 80 bpm, oxygen saturation 92% with a blood pressure of 123/61 mmHg. The EKG at the peak infusion revealed ST depression and T wave inversion in lead II, 3, aVF V4 to V6. Changes appear somewhat more pronounced than resting EKG. Sestamibi was injected 20 seconds after the Lexiscan infusion. Blood pressure at the end of the recovery phase was 126/65 mmHg, oxygen saturation 92% with a heart rate of 87 beats per minute. CONCLUSION: 1. Equivocal EKG changes with the LexiScan infusion given baseline ST-T wave changes. 2. No LexiScan induced chest pain or cardiac arrhythmia. 3. Normal blood pressure and heart rate response. 4. Sestamibi/sestamibi perfusion scan pending; see separate report. Electronically Signed On 04-30-2023 16:23:07 CDT by Eileen Castanon M.D. [email or web address]
[2023-04-21 10:00] VITALS: BMI 30.9
--- NOTE | 2023-04-21 10:30 | NMCV_ITS ---
NM doris perf SPECT r/s* [id number] Katharine Pelletier Age: 72 Gender: F : 1950 Exam Date: 04/21/2023 11:17 Ordering Phys: Chrissy Zuniga DO Technologist: AKILAH Argueta Exam Location: [facility] Indications: CHEST PAIN STRESS TEST Please see separate stress test report in [facility] for full findings IMAGE PROTOCOL Rest/Stress 1 Lexiscan Day Radiopharmaceutical Dose (mCi) Administration Site Administered by Rest: Tc-99m 10.5 IV AKILAH Argueta Sestamibi Stress:Tc-99m 32.7 IV AKILAH Mckay Sestamibi Rest: 21-Apr-2023 60 Discovery 630 Stress: 21-Apr-2023 30 Discovery 630 0.4mg Lexiscan. Supine position only as patient was unable to lay prone. SPECT RESULTS Technical Quality: Excellent Raw Data Analysis: Normal Image Corrections: No attenuation or motion correction applied Summed Stress Score: 0 Summed Rest Score: 0 Summed Difference Score: 0 PERFUSION FINDINGS SPECT images demonstrate homogeneous tracer distribution throughout the myocardium. FUNCTIONAL RESULTS (calculated via Gated SPECT) Stress Image LV EF (%): 73 Stress EDV (mL):85 TID: 0.84 Stress ESV (mL):23 FUNCTIONAL FINDINGS: The left ventricle is normal in size. Transient Ischemia Dilatation of 0.84. The left ventricular ejection fraction is normal with a value of 73%. There is normal left ventricular wall thickening. Normal end-diastolic and end-systolic volumes. IMPRESSIONS 1. Myocardial perfusion imaging is normal. 2. Overall left ventricular systolic function is normal without regional wall motion abnormalities, LVEF=73%. 3. EKG portion of the study will be reported separately. 4. Scan indicates low risk for cardiac events. Eileen Castanon MD (Electronically Signed) Final Date: 22 April 2023 12:29 S
[2023-04-21] MEDS: regadenoson 0.4 Mg/5 ml Syringe IVP (12:04)
[2023-04-21 12:22] VITALS: BP 133/64; PULSE 62
== END 2023-04-21 09:35 | disposition home or self-care (01) ==
LOC: CDL 09:35
PROVIDERS: PCP Family Medicine; Visit Provider Family Medicine
DX: R07.89 Other chest pain (principal)
CPT/HCPCS: 36415; 78452; 93017; 96374; A9500; J2785

== ENCOUNTER 2023-06-02 16:09 | Outpatient (CLI) | payer MEDICARE, BC, SELFPAY | END 2023-06-02 16:10 | disposition home or self-care (01) | LOC: LAB 16:20 | PROVIDERS: PCP Family Medicine; Visit Provider Family Medicine | DX: N18.31 Chronic kidney disease, stage 3a (principal); D50.8 Other iron deficiency anemias; E11.9 Type 2 diabetes mellitus without complications; R80.8 Other proteinuria | CPT/HCPCS: 80048; 81003; 82040; 82306; 82542; 82728; 83036; 83550; 83735; 84100; 84156; 84550; 87077; 87086; 87184 ==

== ENCOUNTER → 2023-12-11 14:58 | Outpatient (BNVA) | payer MEDICARE, BC, SELFPAY | PROVIDERS: PCP Family Medicine; Visit Provider Family Medicine | DX: I10 Essential (primary) hypertension (principal); E11.9 Type 2 diabetes mellitus without complications; R30.0 Dysuria; N39.46 Mixed incontinence | CPT/HCPCS: 81000 ==

== ENCOUNTER 2023-12-12 14:55 | Outpatient (CLI) | payer MEDICARE, BC, SELFPAY ==
--- NOTE | 2023-12-12 15:12 | XR_ITS ---
WS: [id number] Left knee, 3 views, 12/12/2023 Clinical Data: left knee pain / instability Comparison: None. Findings: The knee arthroplasty components appear in good position. No periprosthetic fractures or loosening is seen. The soft tissues are normal. Impression: Stable left knee arthroplasty.
--- NOTE | 2023-12-12 15:12 | XR_ITS ---
WS: [id number] KUB, AP view, 12/12/2023 Clinical Data: right flank pain Comparison: None. Findings: There is a 0.8 cm calcification overlying the right kidney which could be a renal stone. The left kid gabbie shows no calcifications. There are vascular calcifications in the midline calcification in the tr ue pelvis. There is a moderate amount of fecal material throughout the colon. No abnormal intraabdominal masses are seen. There is no dilatated small bowel or evidence of obstruc tion. There is degenerative change of the lower thoracic and the lumbar vertebral bodies. Impression: 1. Questionable right renal calcification. 2. Moderate amount of fecal material in the colon.
[2023-12-12 15:21] LABS: Basophils # 0.1 10^3/uL (0.0-0.1); Basophils % 0.7 %; Eosinophils # 0.2 10^3/uL (0.0-0.8); Eosinophils % 2.7 %; Lymphocytes # 1.3 10^3/uL (0.8-4.8); Lymphocytes % 18.1 %; Mean Corpuscular HGB Conc 32.6 g/dL (30-55); Mean Corpuscular Hemoglobin 29.8 pg (27-33); Mean Corpuscular Volume 91.4 fl (85-98); Mean Platelet Volume 9.3 fL (7.4-10.4); Monocytes # 0.5 10^3/uL (0.2-0.9); Monocytes % 6.6 %; Neutrophils % 71.5 %; Nucleated Red Blood Cells % 0 %; Platelet Count 224 10^3/cmm (157-399); Red Blood Count 3.39 10^6/uL (3.85-5.65); White Blood Count 7.41 10^3/uL (3.29-11.43)
[2023-12-12 15:35] LABS: Estmated Average Glucose 111; Hemoglobin A1C 5.5 % (4.0-6.0)
[2023-12-12 15:43] LABS: Alanine Aminotransferase 18 U/L (0-33); Alkaline Phosphatase 79 U/L (35-105); Anion Gap 15.2 (5-19); Aspartate Amino Transferase 17 U/L (0-32); Blood Urea Nitrogen 43 mg/dL (8-23); Calcium 9.5 mg/dL (8.5-10.5); Carbon Dioxide 26 mmol/L (22-29); Chloride 107 mmol/L (98-107); Chol HDL Ratio 5.28 mg/dL (0.0-4.40); Cholesterol 169 mg/dL (0-200); Globulin 2.8 g/dL (1.3-4.6); Glucose 126 mg/dL (65-115); HDL Cholesterol 32 mg/dL (60-100); Osmolality Calculated 308 mOsm/kg (285-295); Potassium 5.2 mmol/L (3.5-5.1); Sodium 143 mmol/L (136-145); Total Bilirubin 0.3 mg/dL (0.15-1.2); Total Protein 6.8 g/dL (6.6-8.7); Triglycerides 443 mg/dL (0-150)
[2023-12-12 17:56] LABS: LDL Cholesterol Direct 63 mg/dL (0-100)
== END 2023-12-12 14:56 | disposition home or self-care (01) ==
LOC: LAB 14:57
PROVIDERS: PCP Family Medicine; Visit Provider Family Medicine
DX: R10.9 Unspecified abdominal pain (principal); M25.562 Pain in left knee; E11.9 Type 2 diabetes mellitus without complications; I10 Essential (primary) hypertension; N28.89 Other specified disorders of kidney and ureter; K59.00 Constipation, unspecified; Z96.652 Presence of left artificial knee joint
CPT/HCPCS: 36415; 73562; 74018; 80053; 80061; 83036; 83721; 85025

== ENCOUNTER 2024-06-18 16:26 | Outpatient (CLI) | payer MEDICARE, BC, SELFPAY ==
[2024-06-18 17:12] LABS: Basophils % 0.4 %; Eosinophils # 0.2 10^3/uL (0.0-0.8); Eosinophils % 1.9 %; Hematocrit 33.3 % (36-47); Lymphocytes # 1.3 10^3/uL (0.8-4.8); Lymphocytes % 13.7 %; Mean Corpuscular HGB Conc 32.1 g/dL (30-55); Mean Corpuscular Hemoglobin 29.2 pg (27-33); Mean Platelet Volume 9.3 fL (7.4-10.4); Monocytes # 0.5 10^3/uL (0.2-0.9); Monocytes % 5.4 %; Neutrophils # 7.23 10^3/uL (1.8-7.7); Neutrophils % 78.3 %; Nucleated Red Blood Cells % 0 %; Platelet Count 256 10^3/cmm (157-399); Red Blood Count 3.66 10^6/uL (3.85-5.65); Red Cell Distribution Width 13.2 % (12.1-15.1); White Blood Count 9.25 10^3/uL (3.29-11.43)
[2024-06-18 17:27] LABS: Calcium 9.1 mg/dL (8.5-10.5)
[2024-06-18 17:33] LABS: Parathyroid Hormone 19.9 pg/mL (15-65)
[2024-06-18 18:21] LABS: 25 Hydroxy Vitamin D 64 ng/mL (30-100); Albumin Level 4.1 g/dL (3.5-5.2); Anion Gap 18.3 (5-19); Blood Urea Nitrogen 44 mg/dL (8-23); Calcium 9.3 mg/dL (8.5-10.5); Carbon Dioxide 23 mmol/L (22-29); Chloride 101 mmol/L (98-107); Glucose 186 mg/dL (65-115); Phosphorus 4.1 mg/dL (2.5-4.5); Potassium 4.3 mmol/L (3.5-5.1); Sodium 138 mmol/L (136-145)
== END 2024-06-18 16:27 | disposition home or self-care (01) ==
LOC: LAB 16:38
PROVIDERS: PCP Family Medicine Adult Medicine; Visit Provider Registered Nurse
DX: N18.32 Chronic kidney disease, stage 3b (principal); E78.5 Hyperlipidemia, unspecified; I12.9 Hypertensive chronic kidney disease with stage 1 through stage 4 chronic kidney disease, or unspecified chronic kidney disease
CPT/HCPCS: 36415; 80069; 82306; 82310; 83970; 85025

== ENCOUNTER 2024-06-21 08:19 | Outpatient (CLI) | payer MEDICARE, BC, SELFPAY ==
[2024-06-21 08:59] LABS: Bilirubin Urine Negative (Negative); Blood Urine 2+ (Negative); Glucose Urine UA Negative (Normal); Ketones Urine Negative (Negative); Leukocyte Esterase Urine 2+ (Negative); Nitrate Urine Negative (Negative); Protein Urine 2+ (Negative); Specific Gravity, Urine 1.015 (1.005-1.030); Urine Appearance Cloudy (CLEAR); Urine Color Yellow (Yellow); Urobilinogen Urine 0.2 mg/dL (Negative); pH Urine 5.5 (5-7)
[2024-06-21 09:02] LABS: Bacteria Urine 4+ /hpf; Hyaline Casts Urine 1.21 /lpf; Squamous Epithelial Cell Urine 0-5 /hpf (0-5); WBC Urine >100 /hpf (0-5)
[2024-06-21 09:25] LABS: Add Urine Culture? Yes
[2024-06-21 09:28] LABS: Creatinine Urine, Random 85 mg/dL (28-217); Microalbumin Random Urine 39 ug/dL (0-20)
[2024-06-21 09:32] LABS: Microalbum Creatinine Ratio Ur 459 mg/dL (0-20)
== END 2024-06-21 08:20 | disposition home or self-care (01) ==
LOC: LAB 08:23
PROVIDERS: PCP Family Medicine Adult Medicine; Visit Provider Registered Nurse
DX: N18.32 Chronic kidney disease, stage 3b (principal); E78.5 Hyperlipidemia, unspecified; I12.9 Hypertensive chronic kidney disease with stage 1 through stage 4 chronic kidney disease, or unspecified chronic kidney disease
CPT/HCPCS: 81001; 82044; 87086

== ENCOUNTER → 2024-10-15 15:42 | Outpatient (BNVA) | payer MEDICARE, BC, SELFPAY | PROVIDERS: PCP Family Medicine; Visit Provider Family Medicine | DX: E11.9 Type 2 diabetes mellitus without complications (principal); E78.2 Mixed hyperlipidemia; I10 Essential (primary) hypertension; N18.31 Chronic kidney disease, stage 3a; D50.8 Other iron deficiency anemias; R26.89 Other abnormalities of gait and mobility | CPT/HCPCS: 80053; 80061; 82607; 83036; 83540; 83721; 84439; 84443; 85025 ==

== ENCOUNTER 2024-12-27 16:09 | Outpatient (CLI) | payer MEDICARE, SELFPAY ==
--- NOTE | 2024-12-27 16:15 | USR_ITS ---
PROCEDURE INFORMATION: Exam: US Pelvis, Complete, Non-Obstetric Exam date and time: 12/27/2024 4:29 PM Age: 74 years old Clinical indication: Menstruation abnormalities; Postmenopausal bleeding TECHNIQUE: Imaging protocol: Transabdominal pelvic nonobstetric ultrasound. Complete exam. Real time ultrasound with image documentation. COMPARISON: US renal BI with PV bladder 03/10/2023 3:11 PM FINDINGS: Limitations: Limited transabdominal exam due to lack of adequate urinary bladder window and bowel gas. Patient refused transvaginal exam, unable to do. Uterus: Uterine trace length is 5.4 cm x 2.2 cm x 4.8 cm. Uterus is not well seen or well-defined. Endometrium not seen. Right ovary/adnexa: Right ovary not visualized within the right adnexal region. No definite adnexal abnormality. Left ovary/adnexa: Left ovary not visualized within the left adnexal region. No definite left adnexal abnormality. Intraperitoneal space: No free fluid is seen. Urinary bladder: Normal. US/US pelvic complete* [id number] IMPRESSION: Limited transabdominal ultrasound of the pelvis as noted above. Patient refused transvaginal exam, unable to do. Uterus not well seen or well-defined and endometrium not seen. Neither ovary visualized within the adnexal region.
== END 2024-12-27 16:10 | disposition home or self-care (01) ==
LOC: RAD 16:14
PROVIDERS: PCP Family Medicine; Visit Provider Family Medicine
DX: N95.0 Postmenopausal bleeding (principal)
CPT/HCPCS: 76830; 76856

== ENCOUNTER 2025-02-15 15:36 | Outpatient (CLI) | payer MEDICARE, BC, SELFPAY ==
[2025-02-15 17:35] LABS: Basophils % 0.4 %; Eosinophils # 0.3 10^3/uL (0.0-0.8); Eosinophils % 3.3 %; Hematocrit 29.9 % (36-47); Lymphocytes # 1.4 10^3/uL (0.8-4.8); Lymphocytes % 16.9 %; Mean Corpuscular HGB Conc 33.4 g/dL (30-55); Mean Corpuscular Hemoglobin 29.5 pg (27-33); Mean Corpuscular Volume 88.2 fl (85-98); Mean Platelet Volume 9.2 fL (7.4-10.4); Monocytes # 0.4 10^3/uL (0.2-0.9); Monocytes % 5.1 %; Neutrophils # 5.91 10^3/uL (1.8-7.7); Neutrophils % 73.9 %; Nucleated Red Blood Cells % 0 %; Platelet Count 257 10^3/cmm (157-399); Red Blood Count 3.39 10^6/uL (3.85-5.65); Red Cell Distribution Width 13.3 % (12.1-15.1); White Blood Count 7.99 10^3/uL (3.29-11.43)
[2025-02-15 18:30] LABS: Albumin Level 3.9 g/dL (3.5-5.2); Blood Urea Nitrogen 38 mg/dL (8-23); Calcium 8.9 mg/dL (8.5-10.5); Carbon Dioxide 24 mmol/L (22-29); Chloride 104 mmol/L (98-107); Glucose 156 mg/dL (65-115); Iron 49 ug/dL (37-145); Percent Saturation 21.9 % (20-50); Phosphorus 2.8 mg/dL (2.5-4.5); Sodium 140 mmol/L (136-145); Total Iron Binding Capacity 223 mcg/dl; Unsaturated Iron Binding 174 ug/dL (112-347)
[2025-02-15 18:31] LABS: Calcium 8.7 mg/dL (8.5-10.5); Parathyroid Hormone 38.5 pg/mL (15-65)
== END 2025-02-15 15:37 | disposition home or self-care (01) ==
LOC: LAB 15:45
PROVIDERS: PCP Family Medicine; Visit Provider Registered Nurse
DX: N18.32 Chronic kidney disease, stage 3b (principal); D50.9 Iron deficiency anemia, unspecified
CPT/HCPCS: 36415; 80069; 82310; 83540; 83550; 83970; 85025

== ENCOUNTER 2025-02-16 15:46 | Outpatient (CLI) | payer MEDICARE, BC, SELFPAY ==
[2025-02-16 16:45] LABS: Creatinine Urine, Random 81 mg/dL (28-217); Microalbumin Random Urine 35 ug/dL (0-20)
[2025-02-16 16:48] LABS: Microalbum Creatinine Ratio Ur 432 mg/dL (0-20)
== END 2025-02-16 15:47 | disposition home or self-care (01) ==
PROVIDERS: PCP Family Medicine; Visit Provider Registered Nurse
DX: D50.9 Iron deficiency anemia, unspecified (principal)
CPT/HCPCS: 82044

== ENCOUNTER 2025-03-29 15:03 | Oncology outpatient (recurring) (ONCR) | payer MEDICARE, BC, SELFPAY ==
[2025-03-08] MEDS: ferumoxytol (NON-ESRD) 510 MG in sodium chloride 0.9% (100 ml) 100 ML 351 MG IV (15:50)
[2025-03-08 16:16] VITALS: BP 141/72; PULSE 74; RESP 17; TEMP 36.1; O2SAT 96
[2025-03-29 15:26] VITALS: BP 151/75; PULSE 68
[2025-03-29] MEDS: ferumoxytol (NON-ESRD) 510 MG in sodium chloride 0.9% (100 ml) 100 ML 351 MG IV (15:38)
[2025-03-29 16:07] VITALS: BP 155/72; PULSE 64
== END 2025-03-31 23:59 | disposition home or self-care (01) ==
PROVIDERS: PCP Family Medicine; Visit Provider Internal Medicine Medical Oncology
DX: Z53.9 Procedure and treatment not carried out, unspecified reason; D50.9 Iron deficiency anemia, unspecified; Z79.899 Other long term (current) drug therapy
CPT/HCPCS: 96365; Q0138

== ENCOUNTER → 2025-05-19 15:55 | Outpatient (BNVA) | payer MEDICARE, BC, SELFPAY | PROVIDERS: PCP Family Medicine; Visit Provider Family Medicine | DX: E11.9 Type 2 diabetes mellitus without complications (principal) | CPT/HCPCS: 83036 ==

== ENCOUNTER 2025-05-30 15:41 | Outpatient (CLI) | payer MEDICARE, BC, SELFPAY ==
--- NOTE | 2025-05-30 15:40 | MM_ITS ---
WS: [id number] BILATERAL 3D TOMOSYNTHESIS DIGITAL SCREENING MAMMOGRAPHY WITH CAD CLINICAL INFORMATION: screening HISTORY: Screening mammogram. No current complaints. COMPARISON: Baseline TECHNIQUE: Bilateral CC and MLO views. FINDINGS: The breasts are composed of heterogeneous fibroglandular density tissue, which can limit the detection of small underlying mass lesions. No suspicious mass, asymmetry, calcifications, or architectural distortion. No evidence of malignancy. Vascular calcification. A few tiny incidental punctate calcific ations. MM/MM [facility] tomosynthesis [id number] IMPRESSION: DENSITY: The breasts are heterogeneously dense, which may obscure small masses. BI-RADS: 2 - Benign FOLLOW UP: 1 Year Follow-up Recommend return to annual screening mammography.
== END 2025-05-30 15:42 | disposition home or self-care (01) ==
LOC: RAD 15:43
PROVIDERS: PCP Family Medicine; Visit Provider Family Medicine
DX: Z12.31 Encounter for screening mammogram for malignant neoplasm of breast (principal); R92.333 Mammographic heterogeneous density, bilateral breasts; R92.323 Mammographic fibroglandular density, bilateral breasts; R92.1 Mammographic calcification found on diagnostic imaging of breast
CPT/HCPCS: 77063; 77067